=== PATIENT | male | born 1940 | race Caucasian/White ===

== ENCOUNTER → 2021-04-30 | Outpatient (CLI) | payer OTHER, BC ==
--- NOTE | 2021-05-06 17:48 | SLE ---
[facility] [place] [address] POLYSOMNOGRAPHY STUDY Name: ARIAS ARENAS JR Room #: REG [facility]#: [id number] Admission: 04/30/21 Attend Phys: Donovan Corona MD Discharge: Date of : 38 Report #: [id number] THIS REPORT FOR: cc: FAM - Family physician unknown FAM - Family physician unknown Donovan Corona MD ~ DATE OF SERVICE: 04/30/2021 SLEEP STUDY ATTENDING PHYSICIAN: Not available. The patient is 81 years old who weighs 214 pounds with a BMI of 31.6. The patient's [place] score was 8. The patient underwent split night study performed at [facility]. During the night study, the patient spent 426 minutes in bed and slept for 339 minutes with a sleep efficiency of 80%. Sleep latency was 18 minutes with absent REM sleep. Sleep architecture showed normal stage I sleep, increased stage II sleep, normal slow wave and absent REM sleep. During the initial diagnostic portion of the study, the patient slept for 140 minutes. During that time, the patient had 51 obstructive apneas, no mixed apneas, no central apneas and 80 hypopneas. The patient's AHI was 56 per hour. The patient's supine AHI was the same. REM sleep was not observed. EKG monitoring revealed an average heart rate of 52 beats per minute. No sustained arrhythmias observed. PVC's seen thorughout. PLMs were seen at an index of 106 per hour and 12 per hour caused EEG arousals. Nocturnal oximetry study revealed an average oxygen saturation of 95% with lowest of 86%. Less than 1 minute was spent with oxygen saturation of less than 89%. The patient met the criteria for CPAP initiation. It was started at 5 cm of water and titrated up to 12 cm of water. At the final pressure, the patient slept for 27 minutes. The patient had supine sleep, but no REM sleep. The patient's AHI was still 34 per hour. The patient's AHI remained above 30 per hour during all the lower CPAP pressures. Oxygen saturation remained above 90%. Optimum CPAP pressure was not achieved. IMPRESSION: 1. Severe sleep apnea-hypopnea syndrome at an AHI of 56 per hour. 2. No significant nocturnal hypoxia. 3. Severe PLMs. PLM index did decrease while the patient slept on CPAP from an [facility] [address] [place] [address] POLYSOMNOGRAPHY STUDY Name: DEEPAARIAS ORTIZ WILLIS Room #: REG CL [place]#: [id number] Admission: 04/30/21 Attend Phys: Donovan Corona MD Discharge: Date of : 38 Report #: [id number] initial index of 106 per hour to 43 per hour at an arousal index of only 2 per hour. 4. Abnormal EKG with PVC's thorughout. RECOMMENDATIONS: 1. Optimum CPAP pressure was not achieved on this split night study. At a CPAP pressure of 12 cm of water, the patient's AHI was still 34 per hour. I would recommend the patient should return to the sleep lab for a full night of CPAP/BiPAP titration study. The patient may need BiPAP due to the severity of sleep apnea. 2. Once the patient is optimally treated with positive pressure therapy, then follow up in 4-6 weeks to assess compliance and to document clinical improvement. 3. Weight loss is advised. 4. Avoid [employer] depressants. 5. Cautioned regarding driving until symptoms of sleep apnea resolve with positive pressure therapy. 6. PLMs does not need to be treated unless the patient has symptoms of restless legs during the day. 7. Follow up with Cardiology if clinically indicated for abnormal EKG. <ELECTRONICALLY SIGNED> By: Donovan Corona MD 05/06/21 [id number] Donovan Corona MD /nt
== END ==
LOC: SLEEPLAB 13:01
PROVIDERS: ATTEND Internal Medicine Critical Care Medicine
DX: G47.33 Obstructive sleep apnea (adult) (pediatric) (principal); Z20.822 Contact with and (suspected) exposure to COVID-19; R40.0 Somnolence